=== PATIENT | female | born 1960 | race Caucasian/White ===

== ENCOUNTER 2020-02-24 14:37 | Outpatient (CLI) | payer OTHER, SELFPAY ==
--- NOTE | ~2020-02-24 | DEXA_ITS ---
Bone Density Report Name: Bessy Chopra Age: 59 Sex: Female Ethnicity: White Date of : 1960 Indication: postmenopausal; asthma or emphysema; hysterectomy; Referring Provider: Yong, Ryland Williamson Study: Bone densitometry was performed. Exam Date: February 24, 2020 Accession number: [id number] Bone Density: Region BMD T-score Z-score Classification AP Spine (L2, L3, L4) 0.563 -4.7 -3.4 Osteoporosis Femoral Neck (Left) 0.313 -4.8 -3.7 Osteoporosis Total Hip (Left) 0.507 -3.6 -2.8 Osteoporosis World Health Organization criteria for BMD impression classify patients as: Normal (T-score at or above -1.0), Osteopenia (T-score between -1.0 and -2.5), or Osteoporosis (T-score at or below -2.5). 10-year Fracture Risk: FRAX not reported because: Some T-score for Spine Total or Hip Total or Femoral Neck at or below -2.5 Clinical Information Provided by Patient: Has the following medical conditions: Asthma or Emphysema, Hysterectomy Menopause Age: 52 No regular weight bearing exercise Drinks caffeinated beverages Onset of menses at age 15 Number of children 3 Impression: The patient has osteoporosis, based on the Left Femoral Neck T-score. Discussion: HIGH RISK OF FRACTURE. BONE DENSITY IS UNDESIRABLY LOW AT ONE OR MORE SKELETAL SITES, CONSISTENT WITH OSTEOPOROSIS. ALSO, BONE DENSITY IS LOWER THAN EXPECTED FOR AGE AND SEX AT ONE OR MORE SKELETAL SITES; RECOMMEND A DILIGENT SEARCH FOR SECONDARY CAUSES OF BONE LOSS. This patient's lowest T-score meets the World Health Organization's (WHO) criteria for osteoporosis at one or more sites (T-score -2.5 or below). In untreated patients, the risk of osteoporotic fracture increases approximately two-fold for each 1.0 SD decrease in T-score. Low bone density is not the only risk factor for fracture; also consider factors such as patient's age, frailty or poor health, risk of falling, risk of injury, previous osteoporotic fracture, family history of osteoporosis, cigarette smoking, low body weight, etc. Not everyone with low bone mineral density has osteoporosis; osteomalacia and other metabolic bone disorders should also be considered. Patients who have osteoporosis should be evaluated for specific diseases and conditions (secondary causes) that may cause or contribute to bone loss. The [place] [employer]ocrinologists (AACE) and National Osteoporosis Foundation (NOF) recommend pharmacologic intervention for all postmenopausal women whose T-score is in this range. Also, this patient's bone mineral density is below the range considered normal for healthy age-, sex-, and race-matched controls at least one site (Z-score -2.0 or below). This warrants careful evaluation for diseases and conditions that may contribute to accelerated bone loss. The patient should follow a healthful lifestyle (good nutriti
--- NOTE | ~2020-02-24 | CT_ITS ---
EXAMINATION: CT brain wo con DATE: 02/24/2020 15:39 INDICATION: Subarachnoid hemorrhage. TECHNIQUE: Computed tomography (CT) of the head was performed without intravenous contrast. The mA wa s adjusted according to patient size. Iterative reconstruction technique was employed. The dose-lengt h product was 605.33 mGy-cm. COMPARISON: Head CT 07/10/2019 FINDINGS: There is no intracranial hemorrhage, acute infarction, or abnormal intracranial mass lesion . The ventricles are normal in size. The paranasal sinuses are clear. The orbits are normal. The mast oid air cells are normal. There are changes of left-sided craniotomy. IMPRESSION: 1. Normal brain. Reviewed, dictated and finalized at location A. IMPRESSION: 1. Normal brain.
== END 2020-02-24 14:38 | disposition home or self-care (01) ==
LOC: ANHIMG 14:39
PROVIDERS: PCP Physician Assistant; Visit Provider Physician Assistant
DX: I60.9 Nontraumatic subarachnoid hemorrhage, unspecified (principal); Z78.0 Asymptomatic menopausal state; M81.0 Age-related osteoporosis without current pathological fracture
CPT/HCPCS: 70450; 77080

== ENCOUNTER 2020-02-26 13:45 | Emergency (ER) | payer OTHER, SELFPAY ==
--- NOTE | ~2020-02-26 | XR_ITS ---
XR knee RT 3V 02/26/2020 14:52 Indication: Right knee pain Procedure: 3 views right knee Comparison: Comparison to multiple prior studies sequentially, with oldest reviewed study dated 12/2013. Findings: Severe tricompartment osteoarthritis. Osteopenia. No acute fracture or traumatic malalignme nt. No significant joint effusion. No foreign bodies. Impression: 1: No acute fracture. 2: Severe tricompartment osteoarthritis. Reviewed, dictated and finalized at location A. Impression: 1: No acute fracture. 2: Severe tricompartment osteoarthritis.
[2020-02-26 14:10] VITALS: BP 151/87; PULSE 97; RESP 16; TEMP 36.8; O2SAT 98
--- NOTE | 2020-02-26 20:38 | ED.LOWEXIN ---
HPI - Extremity Injury (Lower) General Chief Complaint: Extremity Injury, Lower Stated Complaint: right leg pain Time Seen by Provider: 02/26/20 14:23 Source: patient Limitations: no limitations History of Present Illness HPI Narrative: Patient presents for evaluation of right knee pain that has been worsening over the past week. Patient denies any direct trauma to the knee. Patient reports she occasionally has knee pain. She reports that she takes tramadol in the helps with the pain some. Related Data Home Medications Medication Instructions Recorded Confirmed losartan 02/26/20 tramadol mg 02/26/20 Allergies Allergy/AdvReac Type Severity Reaction Status Date / Time codeine Allergy Mild Unknown Unverified 02/26/20 14:25 Review of Systems Review of Systems: Narrative: CONSTITUTIONAL: Denies fever, chills, or sweats. EYES: Denies visual changes, redness, or discharge. ENT: Denies rhinorrhea, congestion, sore throat, or otalgia. CARDIOVASCULAR: Denies chest pain, palpitations, or edema. RESPIRATORY: Denies cough or dyspnea. GASTROINTESTINAL: Denies abdominal pain, nausea, vomiting, or diarrhea. GENITOURINARY: Denies dysuria or hematuria. SKIN: Denies rash or itching. MUSCULOSKELETAL: Reports right knee pain denies back pain, joint pain, or myalgia. NEUROLOGIC: Denies headache, numbness, dizziness, or weakness. PSYCHIATRIC: Denies anxiety or depression. [facility] Past Medical History Medical History (Updated 02/26/20 @ 16:01 by Yosvany Benito PA-C) Asthma Back problem Bilateral knee pain [place] (hard of hearing) HTN (hypertension) Right hip pain Surgical History Surgical History (Updated 07/10/19 @ 20:30 by Sue Salcido) History of cholecystectomy History of hysterectomy Social History Social History Gender identity (if verbalized by the patient): Female Exam Narrative: Exam Narrative: GENERAL: Well-appearing, well-nourished, and in no acute distress. Morbidly obese. HEAD: Normocephalic, atraumatic. EYES: PERRLA and EOMI. ENT: Nares clear, no rhinorrhea or epistaxis. Mucous membranes moist. NECK: Supple. No adenopathy or masses. CHEST: No respiratory distress. No tachypnea EXTREMITIES: Patient's legs are extremely large. There was no outward signs of injury to the knees. Patient is able to flex and extend the knees. SKIN: Warm, dry, no rash. NEURO: No focal deficits. Alert and oriented x3. PSYCH: Normal mood and affect. Course Vital Signs Vital signs: Vital Signs Temperature 98.2 F 02/26/20 14:10 Pulse Rate 97 02/26/20 14:10 Respiratory Rate 16 02/26/20 14:10 Blood Pressure 151/87 H 02/26/20 14:10 Pulse Oximetry 98 02/26/20 14:10 Temperature 98.2 F 02/26/20 14:10 Pulse Rate 97 02/26/20 14:10 Respiratory Rate 16 02/26/20 14:10 Blood Pressure 151/87 H 02/26/20 14:10 Pulse Oximetry 98 02/26/20 14:10 MDM - Extremity Injury (Lower) MDM Narrative Medical decision making narrative: Instructed patient to discuss with her primary care or director of orthopedics if her tramadol does not manage her multi-compartmental osteoarthritis for additional options. Differential Diagnosis Differential diagnosis: Likely other (Knee sprain, strain, fracture) Imaging Data Radiologist's impression: ITS Impressions Knee X-Ray 02/26/20 14:53 Impression: 1: No acute fracture. 2: Severe tricompartment osteoarthritis. Discharge Plan Discharge Clinical Impression: Arthritis of knee, right Patient Disposition: Home, Self-Care Condition: Stable Instructions: Antibiotic Form, Arthritis (ED) Additional Instructions: Follow-up with your primary care or director of orthopedics for further evaluation and management of your multicompartment arthritis in your knee. Read the handout with more information regarding arthritis and home management. Return to emergency department if you have any emergent symptoms. Prescriptions: No Action losart
== END 2020-02-26 16:12 | disposition home or self-care (01) ==
PROVIDERS: Emergency Provider Emergency Medicine; PCP Physician Assistant
DX: M17.31 Unilateral post-traumatic osteoarthritis, right knee (principal); J45.909 Unspecified asthma, uncomplicated; I10 Essential (primary) hypertension
CPT/HCPCS: 73562; 99283

== ENCOUNTER 2021-02-04 10:25 | Observation (INO) | payer OTHER, SELFPAY ==
[2021-02-04] VITALS (8 sets, daily range): BP systolic 143–220; BP diastolic 63–111; PULSE 73–88; RESP 17–27; TEMP 36.1–36.9; O2SAT 96–100; BMI 48.6
--- NOTE | ~2021-02-04 | CT_ITS ---
EXAMINATION: CTA chest PE protocol DATE: 02/04/2021 14:17 INDICATION: Shortness of breath. Blood clots. Elevated d-dimer. TECHNIQUE: Computed tomography (CT) pulmonary angiogram of the chest was performed with 100 mL Omnipa que-350 intravenous contrast. Additional 3D reconstructions utilizing coronal maximum intensity proje ction (MIP) were performed. Automated exposure control and iterative reconstruction technique were em ployed. The dose-length product was 621.71 mGy-cm. COMPARISON: None FINDINGS: Excellent contrast opacification of the pulmonary arteries. There is mild streak artifact from dense contrast in the superior vena cava and right atrium. Mild scattered respiratory motion artifact most prominent at the lung bases where it decreases sensitivity in some of the smaller subsegmental arteri es. There is a small filling defect near the bifurcation of the main pulmonary artery with location, orientation and appearance which favors a jet of relatively unopacified blood extending through a pat ent arteriosus rather than either streak artifact or pulmonary embolism. No other pulmonary arterial filling defects to suggest pulmonary embolism. There is enlargement of the central pulmonary artery c onsistent with pulmonary arterial hypertension. No pneumonia, pulmonary edema or other pulmonary infi ltrates. No pleural effusion or pneumothorax. Heart size is normal. No pericardial effusion. Thoracic aorta is normal in caliber with no dissection. No pathologically enlarged thoracic lymphadenopathy. Cholecystectomy clips at the gallbladder fossa. Small region of splenic capsular calcification overly ing a region of relative volume loss suggesting sequela of old infarct or trauma. T4 hemangioma. Mult iple chronic compression and burst fractures in the mid to lower thoracic spine. IMPRESSION: 1. Small filling defect at the main pulmonary artery with location and orientation appearance favorin g a jet of relatively unopacified arterial blood arising from the aorta and extending through a paten t ductus arteriosus. No other lesions suspicious for pulmonary embolism. 2. Enlargement of the central pulmonary arteries consistent with pulmonary arterial hypertension. Reviewed, dictated and finalized at location A. IMPRESSION: 1. Small filling defect at the main pulmonary artery with location and orientat ion appearance favoring a jet of relatively unopacified arterial blood arising from the aorta and extending through a patent ductus arteriosus. No other lesio ns suspicious for pulmonary embolism. 2. Enlargement of the central pulmonary arteries consistent with pulmonary linn rial hypertension.
--- NOTE | ~2021-02-04 | US_ITS ---
EXAMINATION: US venous doppler [facility] DATE: 02/04/2021 12:18 INDICATION: Lower limb pain. TECHNIQUE: Grayscale ultrasound images without and with compression and Doppler ultrasound images of the bilateral lower extremity veins were obtained. COMPARISON: Ultrasound 09/08/2014 FINDINGS: The visualized portions of right common femoral vein, profunda (deep) femoral vein, femoral vein, pop liteal vein, peroneal veins, posterior tibial veins, and greater saphenous vein outflow are patent. The visualized portions of left common femoral vein, profunda femoral vein, femoral vein, popliteal v ein, peroneal veins, posterior tibial veins, and greater saphenous vein outflow are patent. IMPRESSION: 1. No deep venous thrombosis. Reviewed, dictated and finalized at location A.
--- NOTE | ~2021-02-04 | XR_ITS ---
EXAMINATION: XR chest 2V DATE: 02/04/2021 12:21 INDICATION: Shortness of breath. TECHNIQUE: Frontal and lateral views of the chest were obtained. COMPARISON: Chest single view 07/10/2019, CT abdomen and pelvis 06/14/15 FINDINGS: There is a diffuse interstitial pattern, consistent with mild pulmonary edema. No pleural e ffusion or pneumothorax. Cardiomegaly is noted. There are fractures of T7, T8, T11, T12, and L1 verte bral bodies. IMPRESSION: 1. Mild pulmonary edema. 2. Cardiomegaly. 3. Age-indeterminate fractures of multiple vertebral bodies, new from 06/14/2015. Reviewed, dictated and finalized at location A. IMPRESSION: 1. Mild pulmonary edema. 2. Cardiomegaly. 3. Age-indeterminate fractures of multiple vertebral bodies, new from 5.
--- NOTE | 2021-02-04 11:48 | PC.NURSE ---
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 2nd person trying
--- NOTE | 2021-02-04 11:59 | ED.GENADULT ---
HPI - General Adult General Chief complaint: Extremity Problem,Nontraumatic Stated complaint: Legs Swelling Time Seen by Provider: 02/04/21 11:07 Source: patient History of Present Illness HPI narrative: Patient is a 60 y/o female complaining of bilateral leg pain starting 5 days ago. She describes her pain as a brick and rates her pain as 10/10 in left leg and 8/10 right leg. She states that walking makes her leg pain worse. She also has chronic SOB. She denies any chest pain. Related Data Home Medications Medication Instructions Recorded Confirmed losartan 50 mg PO DAILY 02/26/20 02/04/21 tramadol 50 mg PO BID 02/26/20 02/04/21 alendronate 70 mg PO WEEKLY 02/04/21 02/04/21 ergocalciferol (vitamin D2) 1,250 mcg PO WEEKLY 02/04/21 02/04/21 gabapentin 300 mg PO TID 02/04/21 02/04/21 meloxicam 7.5 mg PO DAILY 02/04/21 02/04/21 naproxen 500 mg PO BID 02/04/21 02/04/21 omega-3 fatty acids-fish oil [Fish 1 cap PO BID 02/04/21 02/04/21 Oil] Allergies Allergy/AdvReac Type Severity Reaction Status Date / Time codeine Allergy Mild Abdominal Verified 02/04/21 18:36 Pain Review of Systems Review of Systems: All systems reviewed & are unremarkable except as noted in HPI and below Constitutional: Constitutional: Denies chills, Denies fever(s), Denies headache(s) and Denies weakness Eyes: Eyes: Denies blurry vision ENT: Denies headache(s) and Denies neck pain Cardiovascular: Cardiovascular: Denies chest pain, Reports leg edema and Reports dyspnea Respiratory: Respiratory: Denies cough and Denies dyspnea Gastrointestinal: Gastrointestinal: Denies abdominal pain, Denies diarrhea, Denies nausea and Denies vomiting Genitourinary: Genitourinary: Denies hematuria and Denies dysuria Musculoskeletal: Musculoskeletal: Denies back pain and Denies neck pain Neurologic: Denies headache(s) and Denies weakness PMFSH Past Medical History Medical History Asthma Back problem Bilateral knee pain [place] (hard of hearing) HTN (hypertension) Right hip pain Surgical History Surgical History History of cholecystectomy History of hysterectomy Family History Family History (Updated 02/04/21 @ 18:43 by Kayla Perales RN) Mother Diabetes mellitus DVT (deep venous thrombosis) Alzheimer disease Heart disease Hernia Father Heart attack Father Diabetes mellitus Social History Social History Alcohol intake: never Substance use: never Substance use type: does not use Gender identity (if verbalized by the patient): Female Spiritual care concerns: No Exam Const: General: no acute distress and well developed Orientation/consciousness: oriented to person, oriented to place, oriented to time and patient oriented x3 HENMT: Head: normocephalic Ears: external ears normal General nose exam: Normal external nose present Eyes: General: appearance normal, both eyes and all related structures Conjunctivae: conjunctivae normal Neck: Neck: normal visual inspection and full ROM Chest: Chest palpation & inspection: normal inspection of the chest and no tenderness Resp: Effort & Inspection: normal respiratory effort Auscultation: clear to auscultation bilaterally Cardio: Rate: regular rate Rhythm: regular rhythm GI: GI Palp: No abdominal tenderness and Yes Soft to palpation Skin: General skin exam: normal color, turgor normal and ecchymosis (left lower leg) Neuro: General: oriented to person, oriented to place, oriented to time and patient oriented x3 Cranial nerves: Yes hard of hearing Cognition (Neuro): normal cognition Extrem: General: full ROM and edema bilateral Psych: Appearance: grossly normal Mental Status: mental status grossly normal Affect: normal affect Course Consultations Consultation #1: Discussed with KATELYN Domínguez, who agrees to ad
[2021-02-04 12:47] LABS: Basophils Percent Auto 0.5 % (0.2-1.2); Eosinophils Absolute Auto 0.2 K/mm3 (0-0.3); Eosinophils Percent Auto 2.1 % (0-4.4); Hematocrit 40.1 % (37.0-47.0); Hemoglobin 12.5 g/dL (12.0-15.0); Immature Granulocyte Absolute 0.04 K/mm3 (0.00-0.031); Immature Granulocyte Percent A 0.5 % (0-0.5); Lymphocytes Absolute Auto 1.76 K/mm3 (0.9-3.2); Lymphocytes Percent Auto 23.2 % (18.3-44.2); Mean Corpuscular HGB Conc 31.2 g/dl (32-36); Mean Corpuscular Hemoglobin 27.8 pg (26-34); Mean Corpuscular Volume 89.3 fl (80-100); Mean Platelet Volume 11.2 fl (7.4-10.4); Monocytes Absolute Auto 0.6 K/mm3 (0.1-0.6); Monocytes Percent Auto 7.4 % (2.6-8.5); Neutrophils Percent Auto 66.3 % (45.5-73.1); Platelet Count Result 185 k/mm3 (150-375); Red Blood Count 4.49 M/mm3 (4.2-5.4); Red Cell Distribution Width 14.6 % (11.5-14.5); White Blood Count 7.6 K/mm3 (4.5-10.0)
[2021-02-04] MEDS: amLODIPine BESYLATE 5 MG TABLET 10 MG PO (12:50)
[2021-02-04 12:59] LABS: Alanine Aminotransferase 15 U/L (4-35); Albumin Level 4.1 g/dL (3.5-5.1); Alkaline Phosphatase 106 U/L (38-126); Anion Gap 7 mmol/L (8-16); Aspartate Amino Transferase 21 U/L (14-36); Bilirubin,Total 0.9 mg/dL (0.2-1.3); Blood Urea Nitrogen 22 mg/dL (7-17); Calcium 9.4 mg/dL (8.4-10.2); Carbon Dioxide 28 mmol/L (22-30); Chloride 105 mmol/L (98-107); Estimated CRCL calculation 113 ml/min; Estimated Glomerular Filt Rate > 60; Glucose 82 mg/dL (65-105); Potassium 3.9 mmol/L (3.4-5.0); Sodium 140 mmol/L (137-145)
[2021-02-04 13:00] LABS: D Dimer 0.49 ug/mL (<0.48)
[2021-02-04 13:10] LABS: NT Pro B Type Natriuretic Pept 328 pg/mL (5-100); Troponin I < 0.012 ng/mL (0.000-0.034)
[2021-02-04 13:40] LABS: Alveolar/Arterial O2 Gradient 25.5 mmHg; Base Excess ABG 2.8 mEq/l (+/-2.0); Device ROOM AIR; Fractional Inspired Oxygen 21 %; HCO3 ABG 26.7 mEq/l (22.0-26.0); Modified Allen's Test Pass; Oxygen Content ABG 17.2 %vol (16.0-22.0); Oxygen Saturation ABG 96.1 % (95.0-100.0); Oxyhemoglobin 94.7 % THb (90.0-100.0); PCO2 ABG 38.8 mmHg (35.0-45.0); PO2 ABG 77.8 mmHg (80.0-100.0); Site Drawn LEFT RADIAL; Total Hemoglobin 12.9 g/dL (12.0-18.0); pH ABG 7.456 (7.350-7.450)
[2021-02-04 15:21] LABS: Troponin I < 0.012 ng/mL (0.000-0.034)
[2021-02-04] MEDS: FUROSEMIDE INJ 40 MG/4 ML VIAL IV PUSH (17:31)
[2021-02-04] MEDS: amLODIPine BESYLATE 5 MG TABLET PO (17:31)
--- NOTE | 2021-02-04 18:05 | ADMGEN ---
This patient, Bessy Chopra, was admitted to Medical Room 252-01. Patient/family oriented to hospital policies and general routines including ID bracelet, bed and alarms, visiting hours, pain management, procedures, bathroom and other care routines, personal items, smoking policy, room service/diet, and visiting hours. Information on how to activate the Rapid Response Team has been discussed. Patient/Family are encouraged to report perceived risks to care and to ask questions if they do not understand what they are told or what they should do.
--- NOTE | 2021-02-04 19:00 | PM.IMHP ---
H&P: HPI History of Present Illness Date/Time: 02/04/21 19:00 Chief Complaint: Lower extremity swelling. Narrative: This is a 60-year-old female with hypertension, chronic hearing loss, asthma, history of DVT in 1993, and history of epidural hematoma and subarachnoid hemorrhage sustained in a fall in June 2019 who presented to the emergency department earlier today via private vehicle from home for evaluation of lower extremity swelling. Since her intracranial hemorrhage a year and a half ago she has gained quite a bit of weight and intermittently she will have lower extremity edema however it has been much worse and consistent for the past 5 days. Her legs feel heavy like bricks and they are quite painful to her when ambulating. She has also felt a bit short of breath, mainly with exertion. Her D-dimer was a bit elevated on arrival to the emergency department she was sent for CTA of the chest which showed a small filling defect at the main pulmonary artery and with that location and orientation the radiologist favors a jet of relatively unopacified arterial blood arising from the aorta and extending through a PDA. No other suspicious lesions noted for PE. Central pulmonary arteries were enlarged consistent with pulmonary hypertension. Dopplers of the lower extremities did not show evidence of DVT. Chest x-ray did show mild pulmonary edema as well as cardiomegaly. Due to concerns for possible congestive heart failure, pulmonary embolism, and pulmonary hypertension she is being admitted for further workup. She has no known history of cardiac disease but has a strong family history of congestive heart failure apparently. She has never had similar symptoms in the past. She denies chest pain, palpitations, and pleuritic pain. No nausea, vomiting, or sweats. No orthopnea or PND. She has no knowledge of having a patent ductus arteriosus. Review of Systems Review of Systems: Narrative: Twelve systems were reviewed with pertinent positives and negatives as per HPI. She has been hard of hearing since and has poor vision, mainly in the periphery, which is also been from a young age. No fever, chills, or sweats. She denies recent cold and flu symptoms. Patient reports that she bruises easily but she does take naproxen at home. No nausea, vomiting, diarrhea, or dysuria. No cough or wheezing. Except as documented, all other systems were reviewed and are negative. [facility] Past Medical History Medical History (Updated 02/04/21 @ 22:24 by Dodie Jeffrey PA-C) Asthma Borderline diabetes Hard of hearing Intracranial hemorrhage Epidural hematoma and subarachnoid hemorrhage sustained in a fall in June 2019. Surgical History Surgical History (Updated 02/04/21 @ 22:15 by Dodie Jeffrey PA-C) History of cholecystectomy History of craniotomy History of hysterectomy Family History Family History Mother Diabetes mellitus DVT (deep venous thrombosis) Alzheimer disease Heart disease Hernia Father Heart attack Father Diabetes mellitus Social History Social History (Updated 02/04/21 @ 22:16 by Dodie Jeffrey PA-C) Social History: The patient lives in her own apartment in [place]. On disability. She has 3 grown children. No alcohol, tobacco, or drug use. Her sister, Bessie Mckeon, is her healthcare power of senior trial attorney. Code status: Full code. Meds Home Medications and Allergies Home Medications Medication Instructions Recorded Confirmed Type losartan 50 mg PO DAILY 02/26/20 02/04/21 History tramadol 50 mg PO BID 02/26/20 02/04/21 History alendronate 70 mg PO WEEKLY 02/04/21 02/04/21 History ergocalciferol (vitamin D2) 1,250 mcg PO WEEKLY 02/04/21 02/04/21 History gabapentin 300 mg PO TID 02/04/21 02/04/21 History meloxicam 7.5 mg PO DAILY 02/04/21 02/04/21 History naproxen 500 mg PO BID 02/04/21 02/04/21 History omega-3 fatty acids-fish oil [Fish 1 cap PO
[2021-02-04 20:36] LABS: Troponin I < 0.012 ng/mL (0.000-0.034)
[2021-02-05] VITALS: PULSE 92
[2021-02-05 04:00] VITALS: BP 131/79; PULSE 84; PULSE 92; RESP 18; TEMP 36.1; O2SAT 96
[2021-02-05 05:38] LABS: Hematocrit 37.5 % (37.0-47.0); Hemoglobin 11.7 g/dL (12.0-15.0); Mean Corpuscular HGB Conc 31.2 g/dl (32-36); Mean Corpuscular Hemoglobin 28.1 pg (26-34); Mean Corpuscular Volume 90.1 fl (80-100); Mean Platelet Volume 11.5 fl (7.4-10.4); Platelet Count Result 174 k/mm3 (150-375); Red Blood Count 4.16 M/mm3 (4.2-5.4); Red Cell Distribution Width 14.6 % (11.5-14.5); White Blood Count 7.3 K/mm3 (4.5-10.0)
[2021-02-05 05:54] LABS: Anion Gap 6 mmol/L (8-16); Blood Urea Nitrogen 21 mg/dL (7-17); Carbon Dioxide 29 mmol/L (22-30); Chloride 103 mmol/L (98-107); Estimated Glomerular Filt Rate > 60; Glucose 99 mg/dL (65-105); Magnesium 2.2 mg/dL (1.6-2.3); Sodium 138 mmol/L (137-145)
[2021-02-05 08:00] VITALS: PULSE 65
[2021-02-05] MEDS: traMADol HCL (*CRX) 50 MG TABLET PO (08:31)
[2021-02-05] MEDS: OMEGA 3 POLYUNSAT FATTY ACIDS 1 GM CAP PO (08:31)
[2021-02-05] MEDS: MELOXICAM 7.5 MG TABLET PO (08:31)
[2021-02-05] MEDS: GABAPENTIN 300 MG CAPSULE PO ×2 (08:32→12:39)
[2021-02-05] MEDS: LOSARTAN POTASSIUM 50 MG TABLET PO (08:32)
[2021-02-05] MEDS: FUROSEMIDE INJ 40 MG/4 ML VIAL 20 MG IV PUSH (08:32)
[2021-02-05] MEDS: amLODIPine BESYLATE 5 MG TABLET PO (08:32)
[2021-02-05 10:00] VITALS: BP 139/67; PULSE 83; RESP 16; TEMP 36.9; O2SAT 97
[2021-02-05 12:00] VITALS: PULSE 79
[2021-02-05] MEDS: ACETAMINOPHEN 325 MG TABLET 650 MG PO (13:06)
--- NOTE | 2021-02-05 15:31 | PM.DS ---
DS: Admitting Diagnosis Admitting Diagnosis Admitting Diagnosis: Leg swelling DS: Discharge Diagnosis Discharge Diagnosis (1) Acute diastolic CHF (congestive heart failure): Code(s): I50.31 - Acute diastolic (congestive) heart failure Status: Acute Assessment and Plan: This is a 60-year-old female with hypertension, chronic hearing loss, asthma, history of DVT in 1993, and history of epidural hematoma and subarachnoid hemorrhage sustained in a fall in June 2019 who presented to the emergency department earlier today via private vehicle from home for evaluation of lower extremity swelling. Initial vitals showed afebrile, nontachycardic, BP elevated 220/102, O2 98% on RA. Initial labs showed normal CBC with differential. CMP was normal, BNP slightly elevated at 328. Troponin negative x3. TSH normal.Her D-dimer was a bit elevated on arrival to the emergency department she was sent for CTA of the chest which showed a small filling defect at the main pulmonary artery and with that location and orientation the radiologist favors a jet of relatively unopacified arterial blood arising from the aorta and extending through a PDA. No other suspicious lesions noted for PE. Central pulmonary arteries were enlarged consistent with pulmonary hypertension. Dopplers of the lower extremities did not show evidence of DVT. Chest x-ray did show mild pulmonary edema as well as cardiomegaly. Due to concerns for possible congestive heart failure, pulmonary embolism, and pulmonary hypertension she is being admitted for further workup. Echocardiogram showed normal EF, 55-60%, mild LVH, grade 1 diastolic dysfunction, PDA cannot be ruled in or out by this study. telemetry shows normal sinus rhythm with a heart rate of 84 beats per minute. She has no alarms. Her QRS is widened. I talked to the hardboard panel printer, Dr. Bonner, About the patient's possible PDA since he read her echocardiogram. he recommended following up in their office as an outpatient for further evaluation and workup. I made the patient an appointment for February 18 at 10:[address] Dorado. She was also started on amlodipine to help better control her blood pressure since it was severely elevated when she came in. It is much better at this time at 131/79. The patient was started on Lasix 20 mg of her taking daily. Will check a BMP in 1 week and have her follow-up with her primary care provider and Cardiology. Told her check her weights daily. Low-salt diet. Leandro hose were ordered and recommended the patient to wear. Patient understands and agrees with the plan all questions answered. (2) Cardiomegaly: Code(s): I51.7 - Cardiomegaly Status: Acute (3) Pulmonary edema: Code(s): J81.1 - Chronic pulmonary edema Status: Acute (4) Hypertension: Qualifiers: Hypertension type: unspecified Qualified Code(s): I10 - Essential (primary) hypertension Code(s): I10 - Essential (primary) hypertension Status: Acute (5) Abnormal chest CT: Code(s): R93.89 - Abnormal findings on diagnostic imaging of other specified body structures Status: Acute DS: Summary Hospital Course Hospital Course: See above Status at Discharge Cognitive/behavioral status at discharge: Stable, improved. Time Spent with Patient Time attestation: Total time spent providing and/or coordinating discharge services: 45 Time spent: Greater than 30 minutes Exam Narrative: Exam Narrative: General: 60-year-old woman sitting up in bed, resting. Appears comfortable. In no acute distress. Skin: No jaundice or cyanosis. Good skin turgor. Neck: Full range of motion. Supple. Respiratory: Slight crackles to auscultation to right lower lung field, otherwise clear lung sounds. No wheezing. No bony chest wall tenderness. Cardiovascular: The heart has a regular rate and rhythm without murmur. Lower
--- NOTE | 2021-02-05 22:24 | ECHO_ITS ---
Patient Info Name: Bessy Chopra Age: 60 years : 1960 Gender: Female Ht: 58 in Wt: 233 lbs BSA: 2.15 m2 HR: 77 bpm BP: 131 / 79 mmHg Heart Rhythm: Sinus Rhythm Technical Quality: Good Exam Date: 02/05/2021 8:54 AM Exam Location: [facility] Card Pulmonary Patient Status: Inpatient Admit Date: 02/04/2021 Staff Ordering Physician: Dodie Jeffrey PA-C Personal Health Coach: Arian Giles RDCS, RT Attending Provider: Anu Brandon PA-C Referring Physician: Rachele JENKINS; Exam Type: CA echo doppler w bubble study Study Info Indications J81.1 - Chronic pulmonary edema I10 - Essential (primary) hypertension Complete two-dimensional, color flow and Doppler transthoracic echocardiogram is performed with agitated saline. Strain analysis performed. Summary 1. Complete two-dimensional, color flow and Doppler transthoracic echocardiogram is performed with agitated saline. 2. Strain analysis performed. 3. Left ventricular chamber dimension is normal. 4. Left ventricular systolic function is normal, estimated at 55-60%. 5. There is mildly increased left ventricular wall thickness. 6. The left ventricular diastolic function is grade I diastolic dysfunction. 7. Global longitudinal strain is abnormal at -15 %. 8. Left atrial chamber dimension is mildly enlarged. 9. There is mild pulmonic regurgitation. 10. A PDA cannot be ruled in or out by this study. Left Ventricle Left ventricular chamber dimension is normal. Left ventricular systolic function is normal, estimated at 55-60%. There is mildly increased left ventricular wall thickness. The left ventricular diastolic function is grade I diastolic dysfunction. Global longitudinal strain is abnormal at -15 %. Right Ventricle Right ventricular chamber dimension is normal. Right ventricular systolic function is normal. Left Atria Left atrial chamber dimension is mildly enlarged. Right Atria Right atrial chamber dimension is normal. Atrial Septum Intact interatrial septum visualized by color flow and agitated saline imaging. Aortic Valve The aortic valve is not well visualized. There is no aortic valve stenosis. There is trace aortic valve regurgitation. Pulmonic Valve The pulmonic valve is not well visualized. There is no pulmonic valve stenosis. There is mild pulmonic regurgitation. Mitral Valve There is no mitral valve stenosis. There is trace mitral valve regurgitation. The mitral valve annulus is mildly calcified. Tricuspid Valve The tricuspid valve leaflets are normal. There is no significant tricuspid valve stenosis. There is trace tricuspid valve regurgitation. Other Findings A PDA cannot be ruled in or out by this study. Pericardium/Pleural The pericardium appears normal. There is no pericardial effusion. Inferior Vena Cava Normal inferior vena cava with >50% collapse upon inspiration consistent with normal right atrial pressure, 5 mmHg. Aorta The aortic root size at the sinus of Valsalva is normal. The prox ascending aorta size is normal. Left Ventricular Outflow Tract Name Value Normal LVOT 2D LVOT Diameter 2.0 cm LVOT Doppler
== END 2021-02-05 16:44 | disposition home or self-care (01) ==
LOC: ANHED 11:07 → ANH2MED 17:32
PROVIDERS: Physician Assistant; Admitting Provider Internal Medicine; Emergency Provider Emergency Medicine; PCP Physician Assistant; Visit Provider Physician Assistant
DX: I11.0 Hypertensive heart disease with heart failure (principal); I50.31 Acute diastolic (congestive) heart failure; R06.02 Shortness of breath; J81.1 Chronic pulmonary edema; J45.909 Unspecified asthma, uncomplicated; Z86.718 Personal history of other venous thrombosis and embolism
CPT/HCPCS: 36415; 36600; 71046; 71275; 80048; 80053; 82805; 83735; 83880; 84443; 84484; 85025; 85027; 85380; 93306; 93970; 96374; 96375; 96376; 97161; 97165; 99285; A9270; G0378; G0379; J1940; Q9967

== ENCOUNTER 2021-02-18 11:03 | Outpatient (CLI) | payer OTHER, SELFPAY ==
[2021-02-18 11:43] LABS: Anion Gap 6 mmol/L (8-16); Blood Urea Nitrogen 31 mg/dL (7-17); Calcium 9.2 mg/dL (8.4-10.2); Carbon Dioxide 27 mmol/L (22-30); Chloride 108 mmol/L (98-107); Estimated Glomerular Filt Rate > 60; Glucose 92 mg/dL (65-110); Sodium 141 mmol/L (137-145)
== END 2021-02-18 11:04 | disposition home or self-care (01) ==
PROVIDERS: PCP Physician Assistant; Visit Provider Internal Medicine Cardiovascular Disease
DX: I11.0 Hypertensive heart disease with heart failure (principal); I50.32 Chronic diastolic (congestive) heart failure
CPT/HCPCS: 36415; 80048

== ENCOUNTER 2021-09-14 16:59 | Emergency (ER) | payer OTHER, SELFPAY ==
--- NOTE | ~2021-09-14 | XR_ITS ---
XR knee RT 3V 09/14/2021 18:04 Indication: Right knee pain Procedure: 3 views right knee Comparison: Comparison to multiple prior studies sequentially, with oldest reviewed study dated 12/2013. Findings: Severe osteoarthritis of the right knee. Osteopenia. No significant joint effusion. Osteope benjamín. No acute fracture or traumatic malalignment. Impression: 1: Severe osteoarthritis of the right knee. Reviewed, dictated and finalized at location A. [employer] Impression: 1: Severe osteoarthritis of the right knee.
[2021-09-14 17:05] VITALS: BP 189/120; PULSE 86; RESP 16; TEMP 36.6; O2SAT 96
--- NOTE | 2021-09-14 17:23 | ED.WOUNDLAC ---
HPI - Wound/Laceration General Chief Complaint: Wound/Laceration Stated Complaint: Laceration to Right Knee Time Seen by Provider: 09/14/21 17:19 History of Present Illness HPI narrative: 60-year-old female presents the emergency room status post mechanical fall. Patient states that she tripped and fell landed on her right knee. Sustained a laceration to the knee. Patient reports pain with ambulation. Patient states tetanus is up-to-date. Related Data Home Medications Medication Instructions Recorded Confirmed losartan 50 mg PO DAILY 02/26/20 02/04/21 tramadol 50 mg PO BID 02/26/20 02/04/21 Fish Oil 1 cap PO BID 02/04/21 02/04/21 alendronate 70 mg PO WEEKLY 02/04/21 02/04/21 ergocalciferol (vitamin D2) 1,250 mcg PO WEEKLY 02/04/21 02/04/21 gabapentin 300 mg PO TID 02/04/21 02/04/21 meloxicam 7.5 mg PO DAILY 02/04/21 02/04/21 naproxen 500 mg PO BID 02/04/21 02/04/21 Allergies Allergy/AdvReac Type Severity Reaction Status Date / Time codeine Allergy Mild Abdominal Verified 02/04/21 18:36 Pain Review of Systems Review of Systems: CONSTITUTIONAL: Denies fever, chills, or sweats. EYES: Denies visual changes, redness, or discharge. ENT: Denies rhinorrhea, congestion, sore throat, or otalgia. CARDIOVASCULAR: Denies chest pain, palpitations, or edema. RESPIRATORY: Denies cough or dyspnea. GASTROINTESTINAL: Denies abdominal pain, nausea, vomiting, or diarrhea. GENITOURINARY: Denies dysuria or hematuria. SKIN: Denies rash or itching. per HPI: laceration to right knee MUSCULOSKELETAL: Denies back pain, joint pain, or myalgia. Per HPI: pain to right knee NEUROLOGIC: Denies headache, numbness, dizziness, or weakness. PSYCHIATRIC: Denies anxiety or depression. [facility] Past Medical History Medical History Asthma Borderline diabetes Hard of hearing Intracranial hemorrhage Epidural hematoma and subarachnoid hemorrhage sustained in a fall in June 2019. Surgical History Surgical History History of cholecystectomy History of craniotomy History of hysterectomy Family History Family History Mother Diabetes mellitus DVT (deep venous thrombosis) Alzheimer disease Heart disease Hernia Father Heart attack Father Diabetes mellitus Social History Social History Social History: The patient lives in her own apartment in [place]. On disability. She has 3 grown children. No alcohol, tobacco, or drug use. Her sister, Bessie Mckeon, is her healthcare power of patent attorney. Code status: Full code. Exam Narrative: GENERAL: Well-appearing, well-nourished, and in no acute distress. HEAD: Normocephalic, atraumatic. EYES: PERRLA and EOMI. ENT: Nares clear, no rhinorrhea or epistaxis. Mucous membranes moist. Oropharynx without tonsillar hypertrophy exudate or other lesions. Bilateral TMs pearly luu nonbulging NECK: Supple. No adenopathy or masses. No carotid bruits or JVD CHEST: Clear to auscultation. No respiratory distress. No wheezes rales or rhonchi HEART: Regular rate and rhythm. No murmur heard. Normal peripheral pulses. ABDOMEN: Soft, nontender, nondistended, normal active bowel sounds. EXTREMITIES: Normal range of motion. No edema. Right knee: +TTP with STS and ecchymosis SKIN: Warm, dry, no rash. 3 cm irregular shaped laceration to right knee NEURO: No focal deficits. Alert and oriented x3. PSYCH: Normal mood and affect. Course Course Emergency Course: Right knee laceration repaired 6 sutures patient tolerated procedure well. Patient did demonstrate hypertension while in the course of her visit. Given clonidine for elevated blood pressures. Vital Signs Vital signs: Vital Signs Temperature 36.6 C 09/14/21 17:05 Pulse Rate 86 09/14/21 17:05 Respiratory Rate 16 09/14/21 17
[2021-09-14] MEDS: cloNIDine HCL 0.1 MG TABLET PO (17:34)
[2021-09-14] MEDS: LIDO 1%/EPINEPHRINE 1:100,000 20 ML VIAL (17:34)
== END 2021-09-14 18:46 | disposition home or self-care (01) ==
PROVIDERS: Emergency Provider Nurse Practitioner Family; PCP Physician Assistant
DX: S81.011A Laceration without foreign body, right knee, initial encounter (principal); S80.01XA Contusion of right knee, initial encounter; I10 Essential (primary) hypertension; J45.909 Unspecified asthma, uncomplicated; R73.03 Prediabetes; W01.0XXA Fall on same level from slipping, tripping and stumbling without subsequent striking against object, initial encounter
CPT/HCPCS: 12002; 73562; 99283; A9270

== ENCOUNTER 2022-04-08 16:19 | Outpatient (CLI) | payer OTHER, SELFPAY ==
[2022-04-08 16:52] LABS: Anion Gap 8 mmol/L (8-16); Blood Urea Nitrogen 17 mg/dL (7-17); Calcium 9.3 mg/dL (8.4-10.2); Carbon Dioxide 28 mmol/L (22-30); Chloride 104 mmol/L (98-107); Estimated Glomerular Filt Rate > 60; Glucose 100 mg/dL (65-110); Magnesium 2.3 mg/dL (1.6-2.3); Sodium 140 mmol/L (137-145)
== END 2022-04-08 16:20 | disposition home or self-care (01) ==
LOC: ANHLAB 16:23
PROVIDERS: PCP Physician Assistant; Visit Provider Internal Medicine Cardiovascular Disease
DX: I11.0 Hypertensive heart disease with heart failure (principal); I50.32 Chronic diastolic (congestive) heart failure
CPT/HCPCS: 36415; 80048; 83735